=== PATIENT | male | born 1965 | race Caucasian/White ===

== ENCOUNTER 2018-11-03 10:29 | Emergency (ER) | payer MEDICAID, OTHER ==
[~2018-11-03] VITALS: Ht 170.2 cm; Wt 79.4 kg
[2018-11-03 10:37] VITALS: BP 129/76
--- NOTE | 2018-11-03 10:59 | NUR ---
Cleared for Booking. Discharged in [employer] custody Ambulatory-Stable. Written and verbal after care instructions given. Patient verbalizes understanding of instruction.
== END 2018-11-03 10:59 ==
LOC: ER 10:34
DX: K46.9 Unspecified abdominal hernia without obstruction or gangrene (principal); F17.200 Nicotine dependence, unspecified, uncomplicated